=== PATIENT | female | born 1995 | race Caucasian/White ===

== ENCOUNTER 2017-01-14 22:38 | Emergency (ER) | payer BC, MEDICAID ==
[2017-01-14 22:50] VITALS: BP 129/81
--- NOTE | 2017-01-14 23:07 | EDM.PDOC ---
ED HPI GENERAL MEDICAL PROBLEM - General Chief Complaint: General Stated Complaint: FEELS LIKE MIGHT PASS OUT Time Seen by Provider: 01/14/17 23:00 Source of Information: Reports: Patient History Limitations: Reports: No limitations - History of Present Illness INITIAL COMMENTS - FREE TEXT/NARRATIVE: c/o feeling light headed after waking up. Works at night, Sore throat past couple of days. Dizziness worse with movement and changing position - Related Data Allergies Allergy/AdvReac Type Severity Reaction Status Date / Time No Known Allergies Allergy Verified 01/14/17 22:51 Home Meds: Home Meds Ethinyl Estradiol/Drospirenone [Drospirenone-Ee 3-0.03 mg Tab] 1 tab PO DAILY [History] Levothyroxine Sodium [Levothyroxine Sodium] 100 mcg PO DAILY 10/06/16 [History] Past Medical History Psychiatric History: Reports: Anxiety, Depression Endocrine/Metabolic History: Reports: Hypothyroidism - Infectious Disease History Infectious Disease History: Reports: None - Past Surgical History HEENT Surgical History: Reports: Tonsillectomy Social & Family History - Family History Family Medical History: Noncontributory - Tobacco Use Smoking Status *Q: Current Every Day Smoker Years of Tobacco use: 4 Packs/Tins Daily: 1 Second Hand Smoke Exposure: Yes - Caffeine Use Caffeine Use: Reports: Coffee, Soda - Recreational Drug Use Recreational Drug Use: No ED ROS GENERAL - Review of Systems Review Of Systems: See Below Constitutional: Reports: fatigue HEENT: Reports: Throat pain Respiratory: Reports: Shortness of Breath Cardiovascular: Reports: Lightheadedness GI/Abdominal: Reports: No symptoms : Reports: no symptoms Musculoskeletal: Reports: no symptoms Skin: Reports: no symptoms Psychiatric: Reports: No symptoms ED EXAM, GENERAL - Physical Exam Exam: See Below Exam Limited By: No limitations General Appearance: alert, mild distress, obese Eye Exam: bilateral eye: EOMI, PERRL Ears: other (TM's dull bilateral) Nose: normal inspection Throat/Mouth: Inflammation (mild posterior, no exudate) Head: atraumatic, normocephalic Neck: normal inspection. No: lymphadenopathy (L), lymphadenopathy (R) Respiratory/Chest: no respiratory distress, lungs clear, normal breath sounds Cardiovascular: normal peripheral pulses, regular rate, rhythm GI/Abdominal: normal bowel sounds Back Exam: normal inspection Neurological: alert, oriented, CN II-XII intact, normal cognition, normal gait, no motor/sensory deficits Psychiatric: normal affect Skin Exam: Warm, Dry, Intact, Normal color Course - Vital Signs Last Recorded V/S: Last Vital Signs Temp 96 F 01/14/17 22:49 Pulse 99 01/14/17 22:49 Resp 20 01/14/17 22:49 BP 129/81 01/14/17 22:49 Pulse Ox 99 01/14/17 22:49 Orthostatic Blood Pressure [ 132/81 Standing] Orthostatic Blood Pressure [ 126/79 Sitting] Orthostatic Blood Pressure [ 132/77 Supine] - Orders/Labs/Meds Labs: Laboratory Tests 01/14/17 01/14/17 01/14/17 Range/Units 23:04 23:04 23:04 WBC (5.0-10.0) 10^3/uL RBC (4.2-5.4) 10^6/uL Hgb (12.0-16.0) g/dL Hct (37.0-47.0) % MCV (80-100) fL MCH (27.0-34.0) pg MCHC (33.0-35.0) g/dL Plt Count (150-450) 10^3/uL Neut % (Auto) (42.2-75.2) % Lymph % (Auto) (20.5-50.1) % Cecil % (Auto) (2-8) % Eos % (Auto) (1.0-3.0) % Baso % (Auto) (0.0-1.0) % Sodium (135-145) mmol/L Potassium (3.6-5.0) mmol/L Chloride (101-111) mmol/L Carbon Dioxide (21.0-31.0) mmol/L Anion Gap BUN (7-18) mg/dL Creatinine (0.6-1.3) mg/dL Est Cr Clr Drug Dosing mL/min Estimated GFR (MDRD) BUN/Creatinine Ratio Glucose (74-105) mg/dL Calcium (8.4-10.2) mg/dl Total Bilirubin (0.2-1.0) mg/dL AST (10-42) IU/L ALT (10-60) IU/L Alkaline Phosphatase (42-121) IU/L Total Protein (6.7-8.2) g/dl Albumin (3.2-5.5) g/dl Globulin Albumin/Globulin Ratio Urine Color Yellow (YELLOW) Urine Appearance Slightly cloudy (CLEAR) Urine pH 5.5 (5.0-9.0) Ur Specific [place] 1.020 (1.005-1.030) Urine Protein Negative (NEGATIVE) Urine Glucose (UA) Negative (NEGATIVE) Urine Ketones Negative (NEGATIVE) Urine Occult Blood Negative (NEGATIVE) Urine Nitrite Negative (NEGATIVE) Urine Bilirubin Negative (NEGATIVE) Urine Urobilinogen 0.2 (0.2-1.0) mg/dL Ur Leukocyte Esterase Small H (NEGATIVE) Urine RBC 0-5 /HPF Urine WBC 5-10 H (0-5/HPF) /HPF Ur Epithelial Cells Few /HPF Amorphous Sediment Rare (0/HPF) /HPF Urine Bacteria Few (0-FEW/HPF) /HPF Urine HCG, Qual Negative Urine Opiates Screen Negative (NEGATIVE) Ur Oxycodone Screen Negative (NEGATIVE) Urine Methadone Screen Negative (NEGATIVE) Ur Barbiturates Screen Negative (NEGATIVE) U Tricyclic Antidepress Negative (NEGATIVE) Ur Phencyclidine Scrn Negative (NEGATIVE) Ur Amphetamine Screen Negative (NEGATIVE) U Methamphetamines Scrn Negative (NEGATIVE) Urine MDMA Screen Negative (NEGATIVE) U Benzodiazepines Scrn Negative (NEGATIVE) Urine Cocaine Screen Negative (NEGATIVE) U Marijuana (THC) Screen Negative (NEGATIVE) Ethyl Alcohol mg/dL 01/14/17 01/14/17 Range/Units 23:15 23:15 WBC 15.2 H (5.0-10.0) 10^3/uL RBC 4.76 (4.2-5.4) 10^6/uL Hgb 14.0 (12.0-16.0) g/dL Hct 42.0 (37.0-47.0) % MCV 88.2 (80-100) fL MCH 29.4 (27.0-34.0) pg MCHC 33.3 (33.0-35.0) g/dL Plt Count 293 (150-450) 10^3/uL Neut % (Auto) 73.3 (42.2-75.2) % Lymph % (Auto) 17.0 L (20.5-50.1) % Cecil % (Auto) 7.9 (2-8) % Eos % (Auto) 1.6 (1.0-3.0) % Baso % (Auto) 0.2 (0.0-1.0) % Sodium 137 (135-145) mmol/L Potassium 3.9 (3.6-5.0) mmol/L Chloride 102 (101-111) mmol/L Carbon Dioxide 25.0 (21.0-31.0) mmol/L Anion Gap 13.9 BUN 9 (7-18) mg/dL Creatinine 0.6 (0.6-1.3) mg/dL Est Cr Clr Drug Dosing 143.02 mL/min Estimated GFR (MDRD) > 60 BUN/Creatinine Ratio 15.00 Glucose 96 (74-105) mg/dL Calcium 8.9 (8.4-10.2) mg/dl Total Bilirubin 0.5 (0.2-1.0) mg/dL AST 20 (10-42) IU/L ALT 21 (10-60) IU/L Alkaline Phosphatase 66 (42-121) IU/L Total Protein 6.8 (6.7-8.2) g/dl Albumin 3.6 (3.2-5.5) g/dl Globulin 3.2 Albumin/Globulin Ratio 1.13 Urine Color (YELLOW) Urine Appearance (CLEAR) Urine pH (5.0-9.0) Ur Specific [place] (1.005-1.030) Urine Protein (NEGATIVE) Urine Glucose (UA) (NEGATIVE) Urine Ketones (NEGATIVE) Urine Occult Blood (NEGATIVE) Urine Nitrite (NEGATIVE) Urine Bilirubin (NEGATIVE) Urine Urobilinogen (0.2-1.0) mg/dL Ur Leukocyte Esterase (NEGATIVE) Urine RBC /HPF Urine WBC (0-5/HPF) /HPF Ur Epithelial Cells /HPF Amorphous Sediment (0/HPF) /HPF Urine Bacteria (0-FEW/HPF) /HPF Urine HCG, Qual Urine Opiates Screen (NEGATIVE) Ur Oxycodone Screen (NEGATIVE) Urine Methadone Screen (NEGATIVE) Ur Barbiturates Screen (NEGATIVE) U Tricyclic Antidepress (NEGATIVE) Ur Phencyclidine Scrn (NEGATIVE) Ur Amphetamine Screen (NEGATIVE) U Methamphetamines Scrn (NEGATIVE) Urine MDMA Screen (NEGATIVE) U Benzodiazepines Scrn (NEGATIVE) Urine Cocaine Screen (NEGATIVE) U Marijuana (THC) Screen (NEGATIVE) Ethyl Alcohol < 5 mg/dL - Re-Assessments/Exams Free Text/Narrative Re-Assessment/Exam: 03/21/17 04:50 orthostatic BP unremarkable Departure - Departure Time of Disposition: 00:26 Disposition: Home, Self-Care 01 Condition: good Clinical Impression: Strep pharyngitis, Dizziness Instructions: Tonsillitis, [id number] Referrals: PCP,Not In Area [Primary Care Provider] - Forms: ED Department Discharge Additional Instructions: tylenolor ibuprofen for pain fever increase fluid intake augmentin 875/125 one tablet twice daily for one week clinic follow up 3-4 days if not improving
[2017-01-14 23:44] LABS: CHLORIDE,CL 102 mmol/L (101-111); SODIUM,NA 137 mmol/L (135-145)
== END 2017-01-15 00:43 | disposition home or self-care (01) ==
LOC: DL.ED 22:38
DX: J02.0 Streptococcal pharyngitis (principal); F41.9 Anxiety disorder, unspecified; F32.9 Major depressive disorder, single episode, unspecified; E03.9 Hypothyroidism, unspecified; F17.210 Nicotine dependence, cigarettes, uncomplicated; Z79.899 Other long term (current) drug therapy; Z98.890 Other specified postprocedural states
CPT/HCPCS: 36415; 80053; 80305; 81001; 81025; 85025; 87430; 99284; G0480

== ENCOUNTER 2017-04-28 03:41 | Emergency (ER) | payer BC, MEDICAID ==
[2017-04-28 03:47] VITALS: BP 110/69
[2017-04-28] MEDS ORDERED: diphenhydrAMINE 50 MG Cap PO ONE (03:50)
--- NOTE | 2017-04-28 03:53 | EDM.PDOC ---
ED HPI GENERAL MEDICAL PROBLEM - General Chief Complaint: Allergic Reaction Stated Complaint: ALLERGIC REACTION, [id number] Time Seen by Provider: 04/28/17 03:45 Source of Information: Reports: Patient History Limitations: Reports: No Limitations - History of Present Illness INITIAL COMMENTS - FREE TEXT/NARRATIVE: This 21 yo female patient reports to the ED with a possible allergic reaction. The patient reports she started to have itching on her arms, legs and feet at about 2230 last night and has continued to have increasing symptoms throughout the night. The patient reports she took some "all day everyday" allergy medications last night at 2130. The patient reports she has not taken anything else since the symptoms started. The patient reports she is allergic to all of the fragrance products. The patient reports she started noticing the symptoms while at work. Onset: Sudden Onset Date: 04/27/17 Onset Time: 22:30 Duration: Constant, Getting Worse Location: Reports: Face, Neck, Upper Extremity, Left, Upper Extremity, Right, Lower Extremity, Left, Lower Extremity, Right Quality: Reports: Dull Severity: Moderate Improves with: Reports: None Worsens with: Reports: None Associated Symptoms: Reports: No Other Symptoms - Related Data Allergies Allergy/AdvReac Type Severity Reaction Status Date / Time No Known Allergies Allergy Verified 04/28/17 03:44 Home Meds: Home Meds Ethinyl Estradiol/Drospirenone [Drospirenone-Ee 3-0.03 mg Tab] 1 tab PO DAILY [History] Levothyroxine Sodium [Levothyroxine Sodium] 100 mcg PO DAILY 10/06/16 [History] Past Medical History Psychiatric History: Reports: Anxiety, Depression Endocrine/Metabolic History: Reports: Hypothyroidism - Infectious Disease History Infectious Disease History: Reports: None - Past Surgical History HEENT Surgical History: Reports: Tonsillectomy Social & Family History - Family History Family Medical History: Noncontributory - Tobacco Use Smoking Status *Q: Current Every Day Smoker Years of Tobacco use: 4 Packs/Tins Daily: 1 Second Hand Smoke Exposure: Yes - Caffeine Use Caffeine Use: Reports: Coffee, Soda - Recreational Drug Use Recreational Drug Use: No ED ROS ALLERGIC REACTION - Review of Systems Review Of Systems: ROS reveals no pertinent complaints other than HPI. ED EXAM GENERAL NO PERIP PULSE - Physical Exam Exam: See Below Exam Limited By: No Limitations General Appearance: Alert, WD/WN, Moderate Distress, Obese Eye Exam: Bilateral Eye: EOMI, Normal Inspection, PERRL Ears: Normal External Exam, Normal Canal, Hearing Grossly Normal, Normal TMs Nose: Normal Inspection, Normal Mucosa, No Blood Throat/Mouth: Normal Inspection, Normal Lips, Normal Teeth, Normal Gums, Normal Oropharynx, Normal Voice, No Airway Compromise Head: Atraumatic, Normocephalic Neck: Normal Inspection, Supple, Non-Tender, Full Range of Motion Respiratory/Chest: No Respiratory Distress Cardiovascular: Normal Peripheral Pulses, Regular Rate, Rhythm, No Edema, No Gallop, No JVD, No Murmur, No Rub GI/Abdominal: Normal Bowel Sounds, Soft, Non-Tender, No Organomegaly, No Distention, No Abnormal Bruit, No Mass (Female) Exam: Deferred Rectal (Female) Exam: Deferred Back Exam: Normal Inspection, Full Range of Motion, NT Extremities: Normal Inspection, Normal Range of Motion, Non-Tender, Normal Capillary Refill, No Pedal Edema Neurological: Alert, Oriented, CN II-XII Intact, Normal Cognition, Normal Gait, Normal Reflexes, No Motor/Sensory Deficits Psychiatric: Normal Affect, Normal Mood Skin Exam: Excoriations Lymphatic: No Adenopathy Course - Vital Signs Last Recorded V/S: Last Vital Signs Temp 35.9 C 04/28/17 03:44 Pulse 109 H 04/28/17 03:44 Resp 18 04/28/17 03:44 BP 110/69 04/28/17 03:44 Pulse Ox 99 04/28/17 03:44 - Orders/Labs/Meds Meds: Medications Discontinued Medications Generic Name Dose Route Start Last Admin Trade Name Kat PRN Reason Stop Dose Admin Diphenhydramine HCl 50 mg 04/28/17 03:50 04/28/17 03:53 Benadryl PO 04/28/17 03:51 50 mg ONETIME ONE Administration Methylprednisolone Sodium Succinate 125 mg 04/28/17 04:15 04/28/17 04:20 Solu-Medrol IM 04/28/17 04:16 125 mg ONETIME ONE Administration - Re-Assessments/Exams Free Text/Narrative Re-Assessment/Exam: 04/28/17 04:17 The patient reports no change in her symptoms after being given Benadryl. 04/28/17 04:40 The patient reports she is feeling a little better after the steroid injection. Departure - Departure Time of Disposition: 04:40 Disposition: Home, Self-Care 01 Condition: Fair Clinical Impression: Allergic reaction Qualifiers: Encounter type: initial encounter Qualified Code(s): T78.40XA - Allergy, unspecified, initial encounter - Discharge Information Instructions: Allergies, [id number] Forms: ED Department Discharge Care Plan Goals: The patient was advised of the examination results during the visit. The patient was given an oral dose of Benadryl (50 mg) and an injection of SoluMedrol (125 mg) while in the ED. The patient was given a script for Prednisone (20 mg) #10 to take 2 by mouth daily for the next 5 days. The patient was encouraged to take Benadryl (25 mg) every 6 hours over the next 5 days. If the patient has any additional symptoms or concerns, the patient should follow-up with her primary care facility or return to the emergency department.
[2017-04-28] MEDS ORDERED: methylPREDNISolone Sodium Succinate 125 MG/2 ML SDV IM ONE (04:15)
== END 2017-04-28 04:49 | disposition home or self-care (01) ==
LOC: DL.ED 03:41
DX: T78.40XA Allergy, unspecified, initial encounter (principal); F41.9 Anxiety disorder, unspecified; F32.9 Major depressive disorder, single episode, unspecified; E03.9 Hypothyroidism, unspecified; F17.210 Nicotine dependence, cigarettes, uncomplicated; Z79.899 Other long term (current) drug therapy; Z98.890 Other specified postprocedural states
CPT/HCPCS: 96372; 99283; J2930; Q0163

== ENCOUNTER 2017-07-14 01:29 | Emergency (ER) | payer BC ==
[2017-07-14 01:36] VITALS: BP 131/49
--- NOTE | 2017-07-14 02:17 | EDM.PDOC ---
ED HPI GENERAL MEDICAL PROBLEM - General Chief Complaint: Flank Pain Stated Complaint: KIDNEY INFECTION Time Seen by Provider: 07/14/17 02:15 Source of Information: Reports: Patient History Limitations: Reports: No Limitations - History of Present Illness INITIAL COMMENTS - FREE TEXT/NARRATIVE: onset recurrent UTI Sx since yesterday with left flank discomfort. denies fever. 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 Musculoskeletal History: Reports: None Neurological History: Reports: None Psychiatric History: Reports: Anxiety, Depression Endocrine/Metabolic History: Reports: Hypothyroidism Hematologic History: Reports: None Immunologic History: Reports: None Oncologic (Cancer) History: Reports: None Dermatologic History: Reports: None - Infectious Disease History Infectious Disease History: Reports: None - Past Surgical History HEENT Surgical History: Reports: Tonsillectomy GI Surgical History: Reports: Cholecystectomy Social & Family History - Family History Family Medical History: Noncontributory - Tobacco Use Smoking Status *Q: Current Every Day Smoker Years of Tobacco use: 4 Packs/Tins Daily: 1 Second Hand Smoke Exposure: Yes - Caffeine Use Caffeine Use: Reports: Coffee, Soda - Recreational Drug Use Recreational Drug Use: No ED ROS GENERAL - Review of Systems Review Of Systems: ROS reveals no pertinent complaints other than HPI. ED EXAM, RENAL/ - Physical Exam Exam: See Below Exam Limited By: No Limitations General Appearance: Alert, WD/WN, No Apparent Distress Ears: Hearing Grossly Normal Throat/Mouth: Normal Voice, No Airway Compromise Head: Atraumatic Neck: Non-Tender, Full Range of Motion Respiratory/Chest: No Respiratory Distress Cardiovascular: Regular Rate, Rhythm GI/Abdominal: Soft, Non-Tender Back Exam: CVA Tenderness (L), Other (minimal) Neurological: Alert, Oriented, Normal Cognition, Normal Gait, No Motor/Sensory Deficits Psychiatric: Normal Affect, Normal Mood Skin Exam: Warm, Dry, Normal Color Lymphatic: No Adenopathy Course - Vital Signs Last Recorded V/S: Last Vital Signs Temp 36.1 C 07/14/17 01:32 Pulse 91 07/14/17 01:32 Resp 18 07/14/17 01:32 BP 131/49 L 07/14/17 01:32 Pulse Ox 100 07/14/17 01:32 - Orders/Labs/Meds Orders: Active Orders 24 hr Category Date Time Status UA W/MICROSCOPIC [URIN] Stat Lab 07/14/17 01:45 Results Labs: Laboratory Tests 07/14/17 07/14/17 Range/Units 01:45 01:45 Urine Color Yellow (YELLOW) Urine Appearance Cloudy (CLEAR) Urine pH 6.0 (5.0-9.0) Ur Specific [place] >= 1.030 (1.005-1.030) Urine Protein 30 H (NEGATIVE) Urine Glucose (UA) Negative (NEGATIVE) Urine Ketones Negative (NEGATIVE) Urine Occult Blood Large H (NEGATIVE) Urine Nitrite Positive H (NEGATIVE) Urine Bilirubin Negative (NEGATIVE) Urine Urobilinogen 0.2 (0.2-1.0) mg/dL Ur Leukocyte Esterase Small H (NEGATIVE) Urine HCG, Qual Negative Meds: Medications Discontinued Medications Generic Name Dose Route Start Last Admin Trade Name Freq PRN Reason Stop Dose Admin Phenazopyridine HCl 95 mg 07/14/17 02:20 Urinary Pain Relief PO 07/14/17 02:21 ONETIME ONE Trimethoprim/Sulfamethoxazole 1 tab 07/14/17 02:20 Septra Ds PO 07/14/17 02:21 ONETIME ONE - Re-Assessments/Exams Free Text/Narrative Re-Assessment/Exam: 07/14/17 02:24 results discussed with pt. Departure - Departure Time of Disposition: 02:24 Disposition: Home, Self-Care 01 Condition: Good Clinical Impression: UTI, Urinary tract infectious disease - Discharge Information Instructions: Urinary Tract Infection, Adult Forms: ED Department Discharge Additional Instructions: 1) drink lots of liquids 2) follow up with clinic or recheck as needed rx given; bactrim DS bid x 20 pyridium 100mg tid prn x 12 - My Orders Last 24 Hours: My Active Orders 07/14/17 01:45 UA W/MICROSCOPIC [URIN] Stat - Assessment/Plan Last 24 Hours: My Active Orders 07/14/17 01:45 UA W/MICROSCOPIC [URIN] Stat
[2017-07-14] MEDS ORDERED: Sulfamethoxazole/Trimethoprim 800-160 MG Tab PO ONE (02:20)
[2017-07-14] MEDS ORDERED: Phenazopyridine 95 MG Tab PO ONE (02:20)
== END 2017-07-14 02:41 | disposition home or self-care (01) ==
LOC: DL.ED 01:29
DX: N39.0 Urinary tract infection, site not specified (principal); F32.9 Major depressive disorder, single episode, unspecified; E03.9 Hypothyroidism, unspecified; F17.210 Nicotine dependence, cigarettes, uncomplicated; Z90.49 Acquired absence of other specified parts of digestive tract; Z98.890 Other specified postprocedural states; Z79.899 Other long term (current) drug therapy
CPT/HCPCS: 81001; 81025; 99284; A9270

== ENCOUNTER 2019-08-03 21:39 | Emergency (ER) | payer BC ==
[2019-08-03 22:21] VITALS: BP 121/78; PULSE 104
--- NOTE | 2019-08-03 23:11 | EDM.PDOC ---
ED HPI GENERAL MEDICAL PROBLEM - General Chief Complaint: Respiratory Problem Stated Complaint: SOB Time Seen by Provider: 08/03/19 22:45 Source of Information: Reports: Patient History Limitations: Reports: No Limitations - History of Present Illness INITIAL COMMENTS - FREE TEXT/NARRATIVE: cold sx x one week with cough, fever, last tylenol this am. No vomiting or diarrhea, No ear or throat pain, Dry nonproductive cough, Hx asthma, Contacted her PCP this am and got inhaler. 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, Musculoskeletal History: Reports: None Neurological History: Reports: None Psychiatric History: Reports: Anxiety, Depression Endocrine/Metabolic History: Reports: Hypothyroidism Hematologic History: Reports: None Immunologic History: Reports: None Oncologic (Cancer) History: Reports: None Dermatologic History: Reports: None - Infectious Disease History Infectious Disease History: Reports: None - Past Surgical History HEENT Surgical History: Reports: Adenoidectomy, Tonsillectomy GI Surgical History: Reports: Cholecystectomy Social & Family History - Family History Family Medical History: Noncontributory - Tobacco Use Smoking Status *Q: Current Every Day Smoker Years of Tobacco use: 7 Packs/Tins Daily: 1.5 - Caffeine Use Caffeine Use: Reports: Energy Drinks, Soda - Recreational Drug Use Recreational Drug Use: Yes Recreational Drug Type: Reports: Marijuana/Hashish, Methamphetamine ED ROS GENERAL - Review of Systems Review Of Systems: ROS reveals no pertinent complaints other than HPI. ED EXAM, GENERAL - Physical Exam Exam: See Below Exam Limited By: No Limitations General Appearance: Alert, No Apparent Distress, Obese Eye Exam: Bilateral Eye: EOMI Ears: Normal External Exam, Normal TMs Nose: Normal Inspection Throat/Mouth: Normal Inspection Head: Atraumatic, Normocephalic Neck: Full Range of Motion Respiratory/Chest: No Respiratory Distress, Lungs Clear, Normal Breath Sounds. No: Decreased Breath Sounds, Crackles, Rales, Rhonchi, Wheezing Cardiovascular: Normal Peripheral Pulses, Regular Rate, Rhythm GI/Abdominal: Normal Bowel Sounds, Soft Extremities: Normal Inspection Neurological: Alert, Oriented, Normal Cognition Psychiatric: Normal Affect Skin Exam: Warm, Dry, Intact Course - Vital Signs Last Recorded V/S: Last Vital Signs Temp 98.6 F 08/03/19 22:14 Pulse 104 H 08/03/19 22:14 Resp 16 08/03/19 22:14 BP 121/78 08/03/19 22:14 Pulse Ox 100 08/03/19 22:14 - Orders/Labs/Meds Orders: Active Orders 24 hr Category Date Time Status CULTURE STREP A CONFIRMATION [RM] Stat Lab 08/03/19 22:25 Results STREP SCRN A RAPID W CULT CONF [RM] Stat Lab 08/03/19 22:25 Results Departure - Departure Time of Disposition: 23:09 Disposition: Home, Self-Care 01 Condition: Good Clinical Impression: URI (upper respiratory infection) Qualifiers: URI type: unspecified URI Qualified Code(s): J06.9 - Acute upper respiratory infection, unspecified Asthma Qualifiers: Asthma severity: mild Asthma persistence: intermittent Asthma complication type : with acute exacerbation Qualified Code(s): J45.21 - Mild intermittent asthma with (acute) exacerbation - Discharge Information *PRESCRIPTION DRUG MONITORING PROGRAM REVIEWED*: No *COPY OF PRESCRIPTION DRUG MONITORING REPORT IN PATIENT GEETHA: No Instructions: Upper Respiratory Infection, Adult Referrals: Ledy Douglas MD [Primary Care Provider] - Forms: ED Department Discharge Additional Instructions: Albuterol inhaler 2 puffs every 4 hours as needed for cough humidifier avoid tobacco smoke muccinex or robitussin per label instructions alternate tylenol and ibuprofen every 4 hours as needed for fever/ discomfort follow up if symptoms worsen - My Orders Last 24 Hours: My Active Orders 08/03/19 22:25 CULTURE STREP A CONFIRMATION [RM] Stat STREP SCRN A RAPID W CULT CONF [RM] Stat - Assessment/Plan Last 24 Hours: My Active Orders 08/03/19 22:25 CULTURE STREP A CONFIRMATION [RM] Stat STREP SCRN A RAPID W CULT CONF [RM] Stat
== END 2019-08-03 23:14 | disposition home or self-care (01) ==
LOC: DL.ED 21:39
DX: J06.9 Acute upper respiratory infection, unspecified (principal); J45.21 Mild intermittent asthma with (acute) exacerbation; E03.9 Hypothyroidism, unspecified; F17.210 Nicotine dependence, cigarettes, uncomplicated; Z79.890 Hormone replacement therapy
CPT/HCPCS: 87081; 87430; 99283

== ENCOUNTER 2020-01-03 14:15 | Emergency (ER) | payer BC ==
[2020-01-03 14:25] VITALS: BP 155/102; PULSE 85
--- NOTE | 2020-01-03 14:58 | EDM.PDOC ---
ED HPI GENERAL MEDICAL PROBLEM - General Chief Complaint: Lower Extremity Injury/Pain Stated Complaint: LEFT LEG INJURY Time Seen by Provider: 01/03/20 14:56 Source of Information: Reports: Patient History Limitations: Reports: No Limitations - History of Present Illness INITIAL COMMENTS - FREE TEXT/NARRATIVE: was chasing her son yesterday and fell with left leg tucked under her and her knee and ankle hurt. hard to stand. Left Lower Leg Pain Score (Numeric/FACES): 8 - Related Data Allergies Allergy/AdvReac Type Severity Reaction Status Date / Time No Known Allergies Allergy Verified 08/03/19 22:14 Home Meds: Home Meds Ethinyl Estradiol/Drospirenone [Drospirenone-Ee 3-0.03 mg Tab] 1 tab PO DAILY [History] Acetaminophen [Tylenol] 650 mg PO Q4H PRN 01/03/20 [History] Ibuprofen 800 mg PO Q8H 01/03/20 [History] lamoTRIgine [Lamotrigine] 25 mg PO DAILY 01/03/20 [History] Past Medical History HEENT History: Reports: None Cardiovascular History: Reports: None Respiratory History: Reports: None Gastrointestinal History: Reports: None Genitourinary History: Reports: None 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, Musculoskeletal History: Reports: None Neurological History: Reports: None Psychiatric History: Reports: Anxiety, Depression Endocrine/Metabolic History: Reports: Hypothyroidism Hematologic History: Reports: None Immunologic History: Reports: None Oncologic (Cancer) History: Reports: None Dermatologic History: Reports: None - Infectious Disease History Infectious Disease History: Reports: None - Past Surgical History Head Surgeries/Procedures: Reports: None HEENT Surgical History: Reports: Adenoidectomy, Tonsillectomy GI Surgical History: Reports: Cholecystectomy Social & Family History - Family History Family Medical History: Noncontributory - Tobacco Use Smoking Status *Q: Current Every Day Smoker Years of Tobacco use: 1 Packs/Tins Daily: 7 Used Tobacco, but Quit: No - Caffeine Use Caffeine Use: Reports: Soda - Recreational Drug Use Recreational Drug Use: No Review of Systems - Review of Systems Review Of Systems: Comprehensive ROS is negative, except as noted in HPI. ED EXAM, GENERAL - Physical Exam Exam: See Below Exam Limited By: No Limitations General Appearance: Alert, WD/WN, Mild Distress, Other (discomfort) Ears: Hearing Grossly Normal Throat/Mouth: Normal Voice, No Airway Compromise Head: Atraumatic Neck: Non-Tender, Full Range of Motion Respiratory/Chest: No Respiratory Distress Cardiovascular: Regular Rate, Rhythm GI/Abdominal: Soft, Non-Tender Extremities: Other (left knee & ankle with mild swelling, tender R/P, NV wnl, gait limited to pain) Neurological: Alert, Oriented, Normal Cognition, No Motor/Sensory Deficits Psychiatric: Flat Affect Skin Exam: Warm, Dry, Normal Color Lymphatic: No Adenopathy Course - Vital Signs Last Recorded V/S: Last Vital Signs Temp 35.7 C L 01/03/20 14:24 Pulse 85 01/03/20 14:24 Resp 20 01/03/20 14:24 BP 155/102 H 01/03/20 14:24 Pulse Ox 99 01/03/20 14:24 - Orders/Labs/Meds Orders: Active Orders 24 hr Category Date Time Status Ankle 2V Lt [CR] Urgent Exams 01/03/20 14:53 Taken Knee 1V or 2V Lt [CR] Urgent Exams 01/03/20 14:53 Taken - Re-Assessments/Exams Free Text/Narrative Re-Assessment/Exam: 01/03/20 15:34 results discussed with pt. Departure - Departure Time of Disposition: 15:34 Disposition: Home, Self-Care 01 Condition: Good Clinical Impression: Contusion of knee, Sprain of knee Ankle sprain Qualifiers: Encounter type: initial encounter Involved ligament of ankle: calcaneofibular ligament Laterality: left Qualified Code(s): S93.412A - Sprain of calcaneofibular ligament of left ankle, initial encounter - Discharge Information Instructions: Knee Sprain, Adult, [id number] Forms: ED Department Discharge Additional Instructions: 1) wear knee immobilizer and use crutches 2) elevate left leg as much as possible next 4 days 3) see clinic tomorrow for possible MRI SCAN OF LEFT KNEE AND ANKLE FOR INTERNAL LIGAMENT TEARS 4) take tylenol or motrin for discomfort Sepsis Event Note - Evaluation Sepsis Screening Result: No Definite Risk - Focused Exam Vital Signs: Vital Signs Temp Pulse Resp BP Pulse Ox 01/03/20 14:24 35.7 C L 85 20 155/102 H 99 Date Exam was Performed: 01/03/20 Time Exam was Performed: 15:34 - My Orders Last 24 Hours: My Active Orders 01/03/20 14:53 Ankle 2V Lt [CR] Urgent Knee 1V or 2V Lt [CR] Urgent - Assessment/Plan Last 24 Hours: My Active Orders 01/03/20 14:53 Ankle 2V Lt [CR] Urgent Knee 1V or 2V Lt [CR] Urgent
== END 2020-01-03 16:01 | disposition home or self-care (01) ==
LOC: DL.ED 14:15
DX: S93.412A Sprain of calcaneofibular ligament of left ankle, initial encounter (principal); S83.92XA Sprain of unspecified site of left knee, initial encounter; F17.210 Nicotine dependence, cigarettes, uncomplicated; Z79.899 Other long term (current) drug therapy; W19.XXXA Unspecified fall, initial encounter; Y93.02 Activity, running; Y92.000 Kitchen of unspecified non-institutional (private) residence as the place of occurrence of the external cause
CPT/HCPCS: 73560-LT; 73600-LT; 99283-25

== ENCOUNTER 2021-02-17 16:32 | Emergency (ER) | payer BC, MEDICAID, OTHER ==
[2021-02-17 16:58] VITALS: BP 136/110; PULSE 88
--- NOTE | 2021-02-17 18:10 | EDM.PDOC ---
ED HPI GENERAL MEDICAL PROBLEM - General Chief Complaint: Back Pain or Injury Stated Complaint: fell off a ladder Time Seen by Provider: 02/17/21 17:14 Source of Information: Reports: Patient, RN, RN Notes Reviewed History Limitations: Reports: No Limitations - History of Present Illness INITIAL COMMENTS - FREE TEXT/NARRATIVE: Patient is a 25-year-old female who presents to ER with complaint of left-sided rib/flank pain, left hip pain, left leg pain down to the left knee. Reports pain in her spine. Describes the pain as a tightness in her left thigh. Patient states she fell off a ladder 2 days ago, fell down 3 steps and landed on her feet. Patient denies hitting her head or getting knocked out. Patient states pain is improved when she is lying down, becomes worse when she tries to stand up from sitting position or stand. Onset: Sudden Left Lower Back Pain Score (Numeric/FACES): 6 - Related Data Allergies Allergy/AdvReac Type Severity Reaction Status Date / Time ciprofloxacin Allergy Hives Verified 02/17/21 16:55 Home Meds: Home Meds Ethinyl Estradiol/Drospirenone [Drospirenone-Ee 3-0.03 mg Tab] 1 tab PO DAILY 10/06/16 [History] Acetaminophen [Tylenol] 650 mg PO Q4H PRN 01/03/20 [History] Ibuprofen 800 mg PO Q8H 01/03/20 [History] lamoTRIgine [Lamotrigine] 25 mg PO DAILY 01/03/20 [History] Past Medical History HEENT History: Reports: None Cardiovascular History: Reports: None Respiratory History: Reports: None Gastrointestinal History: Reports: None Genitourinary History: Reports: None 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 History: Reports: None Neurological History: Reports: None Psychiatric History: Reports: Anxiety, Depression Endocrine/Metabolic History: Reports: Hypothyroidism Hematologic History: Reports: None Immunologic History: Reports: None Oncologic (Cancer) History: Reports: None Dermatologic History: Reports: None - Infectious Disease History Infectious Disease History: Reports: Novel Coronavirus - Past Surgical History Head Surgeries/Procedures: Reports: None HEENT Surgical History: Reports: Adenoidectomy, Tonsillectomy GI Surgical History: Reports: Cholecystectomy Social & Family History - Family History Family Medical History: No Pertinent Family History - Tobacco Use Tobacco Use Status *Q: Current Every Day Tobacco User Years of Tobacco use: 10 Packs/Tins Daily: 1 - Caffeine Use Caffeine Use: Reports: Soda - Recreational Drug Use Recreational Drug Use: No ED ROS GENERAL - Review of Systems Review Of Systems: Comprehensive ROS is negative, except as noted in HPI. ED EXAM,LOWER BACK PAIN/INJURY - Physical Exam Exam: See Below Exam Limited By: No Limitations General Appearance: Alert, WD/WN, Mild Distress, Obese Eye Exam: Bilateral Eye: EOMI, Normal Inspection Ears: Normal External Exam, Hearing Grossly Normal Nose: Normal Inspection Throat/Mouth: Normal Inspection, Normal Voice, No Airway Compromise Head: Atraumatic, Normocephalic Neck: Normal Inspection, Supple, Non-Tender, Full Range of Motion Respiratory/Chest: No Respiratory Distress, Lungs Clear, Normal Breath Sounds, No Accessory Muscle Use, Chest Non-Tender Cardiovascular: Normal Peripheral Pulses, Regular Rate, Rhythm, No Edema, No Gallop, No JVD, No Murmur, No Rub GI/Abdominal: Normal Bowel Sounds, Soft, Non-Tender (Female) Exam: Deferred Rectal (Female) Exam: Deferred Back Exam: CVA Tenderness (L), Decreased Range of Motion, Paraspinal Tenderness, Vertebral Tenderness Extremities: Normal Inspection, No Pedal Edema, Normal Capillary Refill, Leg Pain (left) Neurological: Alert, Normal Mood/Affect, Normal Dorsiflexion, CN II-XII Intact, Normal Plantar Flexion, Normal Gait (painful), Normal Reflexes, No Motor/Sensory Deficits, Oriented x 3 Psychiatric: Normal Affect, Normal Mood Skin Exam: Warm, Dry, Intact, Normal Color, No Rash Lymphatic: No Adenopathy Course - Vital Signs Last Recorded V/S: Last Vital Signs Temp 97.4 F 02/17/21 16:55 Pulse 88 02/17/21 16:55 Resp 18 02/17/21 16:55 BP 136/110 H 02/17/21 16:55 Pulse Ox 96 02/17/21 16:55 - Orders/Labs/Meds Labs: Laboratory Tests 02/17/21 02/17/21 Range/Units 17:40 17:40 Urine Color Yellow (YELLOW) Urine Appearance Slightly cloudy (CLEAR) Urine pH 5.5 (5.0-9.0) Ur Specific [place] >= 1.030 (1.005-1.030) Urine Protein 100 H (NEGATIVE) Urine Glucose (UA) Negative (NEGATIVE) Urine Ketones Negative (NEGATIVE) Urine Occult Blood Negative (NEGATIVE) Urine Nitrite Negative (NEGATIVE) Urine Bilirubin Negative (NEGATIVE) Urine Urobilinogen 0.2 (0.2-1.0) mg/dL Ur Leukocyte Esterase Negative (NEGATIVE) Urine RBC 0-5 /HPF Urine WBC 5-10 H (0-5/HPF) /HPF Ur Epithelial Cells Many H (NOT SEEN) /HPF Amorphous Sediment Few (NOT SEEN) /HPF Urine Bacteria Moderate H (0-FEW/HPF) /HPF Urine HCG, Qual Negative - Radiology Interpretation Free Text/Narrative:: Ribs with chest xray: PROCEDURE INFORMATION: Exam: XR Left Ribs with PA Chest Exam date and time: 02/17/2021 6:06 PM Age: 25 years old Clinical indication: Other: Fell 2 days ago; Additional info: Fall, pain left ribs, spinal tenderness, left hip/ TECHNIQUE: Imaging protocol: XR Left ribs with PA chest. Views: 3 views COMPARISON: No relevant prior studies available. FINDINGS: Lungs: Unremarkable. No consolidation. Pleural spaces: Unremarkable. No pleural effusion. No pneumothorax. Heart/Mediastinum: Unremarkable. No cardiomegaly. Bones/joints: Unremarkable. IMPRESSION: No acute findings. Thank you for allowing us to participate in the care of your patient. Dictated and Authenticated by: Davey Chris MD 02/17/2021 6:49 PM Central Time ([place] & [place]) Left Hip xray: PROCEDURE INFORMATION: Exam: XR Left Hip Exam date and time: 02/17/2021 6:15 PM Age: 25 years old Clinical indication: Other: Fell 2 days ago; Additional info: Fall, pain left ribs, spinal tenderness, left hip/ TECHNIQUE: Imaging protocol: XR Left hip. Views: 2 or 3 views hip with pelvis when performed. COMPARISON: No relevant prior studies available. FINDINGS: Bones/joints: There is no evidence of acute fracture. There is no subluxation or dislocation. 12 mm sclerotic density left superior pubic ramus likely a bone island. Soft tissues: There is no soft tissue abnormality seen. Gastrointestinal tract: Non-specific/nonobstructive intestinal gas pattern. IMPRESSION: 1. No acute findings. 2. 12 mm sclerotic density left superior pubic ramus likely a bone island. Further evaluation of this probably benign finding should be based on clinical grounds. If there is a high clinical suspicion of malignancy in this patient a bone scan could be considered. Thank you for allowing us to participate in the care of your patient. Dictated and Authenticated by: Davey Chris MD 02/17/2021 6:50 PM Central Time ([place] & [place]) Lumbosacral Spine: PROCEDURE INFORMATION: Exam: XR Lumbosacral Spine Exam date and time: 02/17/2021 6:18 PM Age: 25 years old Clinical indication: Other: Fell 2 days ago; Additional info: Fall, pain left ribs, spinal tenderness, left hip/ TECHNIQUE: Imaging protocol: XR of the lumbosacral spine. Views: 4 or 5 views. COMPARISON: CR Hip Min 2V or 3V w Pelvis Lt 02/17/2021 6:15 PM FINDINGS: Bones/joints: Near anatomic alignment. Lumbar disc space heights near normal. Minor anterior osteophytes multiple levels.The facet joints are appropriately oriented. There is no significant degenerative change. There is no evidence of acute fracture. Spina bifida occulta S1.Impression: Soft tissues: There is no soft tissue abnormality seen. Intraperitoneal space: Status post cholecystectomy. Gastrointestinal tract: Non-specific/nonobstructive intestinal gas pattern. IMPRESSION: No acute findings. Thank you for allowing us to participate in the care of your patient. Dictated and Authenticated by: Davey Chris MD 02/17/2021 6:52 PM Central Time ( & [place]) Thoracic spine xray: PROCEDURE INFORMATION: Exam: XR Thoracic Spine Exam date and time: 02/17/2021 6:20 PM Age: 25 years old Clinical indication: Other: Fell 2 days ago; Additional info: Fall, pain left ribs, spinal tenderness, left hip/ TECHNIQUE: Imaging protocol: XR of the thoracic spine. Views: 2 views. COMPARISON: No relevant prior studies available. FINDINGS: Bones/joints: Near anatomic alignment. There are no significant degenerative changes present. Limited visualization.There is no evidence of acute fracture. The pedicles are intact. No visible bone destruction. Soft tissues: There is no soft tissue abnormality seen. Lungs: The visualized portions of the lung are normal. IMPRESSION: No acute findings. Thank you for allowing us to participate in the care of your patient. Dictated and Authenticated by: Davey Chris MD 02/17/2021 6:53 PM Central Time ([place] & [place]) See rad report Departure - Departure Time of Disposition: 19:03 Disposition: Home, Self-Care 01 Condition: Good Clinical Impression: Muscle strain - Discharge Information *PRESCRIPTION DRUG MONITORING PROGRAM REVIEWED*: No *COPY OF PRESCRIPTION DRUG MONITORING REPORT IN PATIENT GEETHA: No Instructions: Back Injury Prevention, [id number], Muscle Strain, [id number] Forms: ED Department Discharge Additional Instructions: May use Tylenol and/or ibuprofen as directed for pain Alternate heat and ice to the affected areas Follow-up with your primary care provider in the clinic if no improvement for possible MRI Follow-up with physical therapy if no improvement Sepsis Event Note (ED) - Evaluation Sepsis Screening Result: No Definite Risk - Focused Exam Vital Signs: Vital Signs Temp Pulse Resp BP Pulse Ox 02/17/21 16:55 97.4 F 88 18 136/110 H 96
--- NOTE | 2021-02-17 18:49 | CR ---
PROCEDURE INFORMATION: Exam: XR Left Ribs with PA Chest Exam date and time: 02/17/2021 6:06 PM Age: 25 years old Clinical indication: Other: Fell 2 days ago; Additional info: Fall, pain left ribs, spinal tenderness, left hip/ TECHNIQUE: Imaging protocol: XR Left ribs with PA chest. Views: 3 views COMPARISON: No relevant prior studies available. FINDINGS: Lungs: Unremarkable. No consolidation. Pleural spaces: Unremarkable. No pleural effusion. No pneumothorax. Heart/Mediastinum: Unremarkable. No cardiomegaly. Bones/joints: Unremarkable. IMPRESSION: No acute findings.
--- NOTE | 2021-02-17 18:50 | CR ---
PROCEDURE INFORMATION: Exam: XR Left Hip Exam date and time: 02/17/2021 6:15 PM Age: 25 years old Clinical indication: Other: Fell 2 days ago; Additional info: Fall, pain left ribs, spinal tenderness, left hip/ TECHNIQUE: Imaging protocol: XR Left hip. Views: 2 or 3 views hip with pelvis when performed. COMPARISON: No relevant prior studies available. FINDINGS: Bones/joints: There is no evidence of acute fracture. There is no subluxation or dislocation. 12 mm sclerotic density left superior pubic ramus likely a bone island. Soft tissues: There is no soft tissue abnormality seen. Gastrointestinal tract: Non-specific/nonobstructive intestinal gas pattern. IMPRESSION: 1. No acute findings. 2. 12 mm sclerotic density left superior pubic ramus likely a bone island. Further evaluation of this probably benign finding should be based on clinical grounds. If there is a high clinical suspicion of malignancy in this patient a bone scan could be considered.
--- NOTE | 2021-02-17 18:52 | CR ---
PROCEDURE INFORMATION: Exam: XR Lumbosacral Spine Exam date and time: 02/17/2021 6:18 PM Age: 25 years old Clinical indication: Other: Fell 2 days ago; Additional info: Fall, pain left ribs, spinal tenderness, left hip/ TECHNIQUE: Imaging protocol: XR of the lumbosacral spine. Views: 4 or 5 views. COMPARISON: CR Hip Min 2V or 3V w Pelvis Lt 02/17/2021 6:15 PM FINDINGS: Bones/joints: Near anatomic alignment. Lumbar disc space heights near normal. Minor anterior osteophytes multiple levels.The facet joints are appropriately oriented. There is no significant degenerative change. There is no evidence of acute fracture. Spina bifida occulta S1.Impression: Soft tissues: There is no soft tissue abnormality seen. Intraperitoneal space: Status post cholecystectomy. Gastrointestinal tract: Non-specific/nonobstructive intestinal gas pattern. IMPRESSION: No acute findings.
--- NOTE | 2021-02-17 18:53 | CR ---
PROCEDURE INFORMATION: Exam: XR Thoracic Spine Exam date and time: 02/17/2021 6:20 PM Age: 25 years old Clinical indication: Other: Fell 2 days ago; Additional info: Fall, pain left ribs, spinal tenderness, left hip/ TECHNIQUE: Imaging protocol: XR of the thoracic spine. Views: 2 views. COMPARISON: No relevant prior studies available. FINDINGS: Bones/joints: Near anatomic alignment. There are no significant degenerative changes present. Limited visualization.There is no evidence of acute fracture. The pedicles are intact. No visible bone destruction. Soft tissues: There is no soft tissue abnormality seen. Lungs: The visualized portions of the lung are normal. IMPRESSION: No acute findings.
== END 2021-02-17 19:13 | disposition home or self-care (01) ==
LOC: DL.ED 16:32
DX: S76.012A Strain of muscle, fascia and tendon of left hip, initial encounter (principal); S29.011A Strain of muscle and tendon of front wall of thorax, initial encounter; S86.912A Strain of unspecified muscle(s) and tendon(s) at lower leg level, left leg, initial encounter; Z72.0 Tobacco use; Z88.1 Allergy status to other antibiotic agents; Z79.899 Other long term (current) drug therapy; W11.XXXA Fall on and from ladder, initial encounter
CPT/HCPCS: 71101-LT; 72070; 72110; 81001; 81025; 99283; 99283-25

== ENCOUNTER 2021-03-13 23:08 | Emergency (ER) | payer MEDICAID, OTHER ==
[2021-03-13 23:37] VITALS: PULSE 89
[2021-03-14] MEDS ORDERED: methylPREDNISolone Sodium Succinate 125 MG/2 ML SDV IVPUSH ONE (00:06)
[2021-03-14] MEDS ORDERED: Famotidine 20 MG/2 ML SDV IVPUSH ONE (00:07)
--- NOTE | 2021-03-14 00:13 | EDM.PDOC ---
ED HPI GENERAL MEDICAL PROBLEM - General Chief Complaint: Skin Complaint Stated Complaint: HIVES EVERYWHERE Time Seen by Provider: 03/13/21 23:40 Source of Information: Reports: Patient, RN History Limitations: Reports: No Limitations - History of Present Illness INITIAL COMMENTS - FREE TEXT/NARRATIVE: Ed with c/o hives and itching on arms and legs startign after sitting in sun today. 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 No difficulty swallowing or breathing. - Related Data Allergies Allergy/AdvReac Type Severity Reaction Status Date / Time ciprofloxacin Allergy Hives Verified 03/13/21 23:22 Home Meds: Home Meds Ethinyl Estradiol/Drospirenone [Drospirenone-Ee 3-0.03 mg Tab] 1 tab PO DAILY 10/06/16 [History] Acetaminophen [Tylenol] 650 mg PO Q4H PRN 01/03/20 [History] Ibuprofen 800 mg PO Q8H 01/03/20 [History] lamoTRIgine [Lamotrigine] 25 mg PO DAILY 01/03/20 [History] Past Medical History HEENT History: Reports: None Cardiovascular History: Reports: None Respiratory History: Reports: None Gastrointestinal History: Reports: None Genitourinary History: Reports: 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 History: Reports: None Neurological History: Reports: None Psychiatric History: Reports: Anxiety, Depression Endocrine/Metabolic History: Reports: Hypothyroidism Hematologic History: Reports: None Immunologic History: Reports: None Oncologic (Cancer) History: Reports: None Dermatologic History: Reports: None - Infectious Disease History Infectious Disease History: Reports: Novel Coronavirus - Past Surgical History Head Surgeries/Procedures: Reports: None HEENT Surgical History: Reports: Adenoidectomy, Tonsillectomy GI Surgical History: Reports: Cholecystectomy Social & Family History - Family History Family Medical History: No Pertinent Family History - Tobacco Use Tobacco Use Status *Q: Current Every Day Tobacco User Years of Tobacco use: 12 Packs/Tins Daily: 0.5 - Caffeine Use Caffeine Use: Reports: Soda - Recreational Drug Use Recreational Drug Use: No ED ROS GENERAL - Review of Systems Review Of Systems: Comprehensive ROS is negative, except as noted in HPI. ED EXAM, SKIN/RASH Exam: See Below Exam Limited By: No Limitations General Appearance: Alert, Mild Distress, Obese Ears: Normal External Exam Nose: Normal Inspection Throat/Mouth: Normal Inspection Head: Atraumatic, Normocephalic Neck: Normal Inspection Respiratory/Chest: No Respiratory Distress, Lungs Clear, Normal Breath Sounds Cardiovascular: Regular Rate, Rhythm GI/Abdominal: Normal Bowel Sounds, Soft Neurological: Alert, Oriented Psychiatric: Normal Affect Skin: Warm, Dry Location, Skin: Upper Extremity, Right, Upper Extremity, Left, Lower Extremity, Right, Lower Extremity, Left Characteristics: Papular, Fine, Urticarial Course - Vital Signs Last Recorded V/S: Last Vital Signs Temp 98.4 F 03/13/21 23:34 Pulse 89 03/13/21 23:34 Resp 20 03/13/21 23:34 BP 124/74 03/14/21 01:02 Pulse Ox 99 03/13/21 23:34 - Orders/Labs/Meds Meds: Medications Discontinued Medications Generic Name Dose Route Start Last Admin Trade Name Freq PRN Reason Stop Dose Admin Famotidine 20 mg 03/14/21 00:07 03/14/21 00:27 Famotidine 20 Mg/2 Ml Sdv IVPUSH 03/14/21 00:08 20 mg ONETIME ONE Administration Methylprednisolone Sodium Succinate 125 mg 03/14/21 00:06 03/14/21 00:27 Methylprednisolone Sodium Succinate 125 Mg/2 Ml Sdv IVPUSH 03/14/21 00:07 125 mg ONETIME ONE Administration - Re-Assessments/Exams Free Text/Narrative Re-Assessment/Exam: 03/14/21 02:38 Improved prior to discharge. Departure - Departure Time of Disposition: 00:11 Disposition: Home, Self-Care 01 Condition: Good Clinical Impression: Dermatitis - Discharge Information *PRESCRIPTION DRUG MONITORING PROGRAM REVIEWED*: No *COPY OF PRESCRIPTION DRUG MONITORING REPORT IN PATIENT GEETHA: No Instructions: Rash, Adult Forms: ED Department Discharge Additional Instructions: avoid sun exposure follow up in clinicprednisone taper benadryl 25-50mg every 4 hours as needed for itching Sepsis Event Note (ED) - Evaluation Sepsis Screening Result: No Definite Risk - Focused Exam Vital Signs: Vital Signs Temp Pulse Resp BP Pulse Ox 03/14/21 01:02 124/74 03/13/21 23:34 98.4 F 89 20 99
[2021-03-14] MEDS ORDERED: methylPREDNISolone Sodium Succinate 125 MG/2 ML SDV ONE (00:23)
[2021-03-14] MEDS ORDERED: Famotidine 20 MG/2 ML SDV ONE (00:24)
[2021-03-14 01:03] VITALS: BP 124/74
== END 2021-03-14 01:08 | disposition home or self-care (01) ==
LOC: DL.ED 23:08
DX: L30.9 Dermatitis, unspecified (principal); Z88.1 Allergy status to other antibiotic agents; Z72.0 Tobacco use
CPT/HCPCS: 96374; 96375; 99282; 99282-25; J2930; J3490

== ENCOUNTER 2021-12-18 20:17 | Emergency (ER) | payer MEDICAID ==
[2021-12-18 20:49] VITALS: BP 160/101; PULSE 113
[2021-12-18 20:51] LABS: AMPHETAMINES,URINE NEGATIVE (NEGATIVE); BARBITURATES,URINE NEGATIVE (NEGATIVE); BENZODIAZEPINE,URINE NEGATIVE (NEGATIVE); MDMA (ECSTASY), URINE NEGATIVE (NEGATIVE); METHADONE,URINE NEGATIVE (NEGATIVE); METHAMPHETAMINES,URINE NEGATIVE (NEGATIVE); OPIATES,URINE NEGATIVE (NEGATIVE); OXYCODONE,URINE NEGATIVE (NEGATIVE); PHENCYCLIDINE,URINE NEGATIVE (NEGATIVE); TCA,URINE NEGATIVE (NEGATIVE)
[2021-12-18] MEDS ORDERED: Ondansetron 4 MG/2 ML SDV IVPUSH ONE (20:57)
[2021-12-18] MEDS ORDERED: Sodium Chloride 0.9% 1,000 ML IV ONE (20:57)
[2021-12-18] MEDS ORDERED: fentaNYL 100 MCG/2 ML SDV IVPUSH ONE (20:57)
[2021-12-18 21:13] LABS: ANION GAP 14.9 mEq/L (7-13); CHLORIDE,CL 104 mmol/L (98-107); SODIUM,NA 141 mmol/L (136-145)
[2021-12-18] MEDS ORDERED: Iopamidol 612 MG/ML 100 ML Bottle IVPUSH ONE (23:16)
[2021-12-18] MEDS ORDERED: Azithromycin 250 MG Tab PO ONE (23:31)
[2021-12-18] MEDS ORDERED: cefTRIAXone 1 GM in Sodium Chloride 0.9% 50 ML IV ONE (23:31)
[2021-12-19] MEDS ORDERED: LORazepam 2 MG/ML SDV IVPUSH ONE
[2021-12-20 11:47] LABS: C.TRACHOMATIS BY TMA Negative (Negative); N.GONORRHOEAE BY TMA Negative (Negative)
== END 2021-12-19 01:07 | disposition home or self-care (01) ==
LOC: DL.ED 20:17
DX: N12 Tubulo-interstitial nephritis, not specified as acute or chronic (principal); E03.9 Hypothyroidism, unspecified; Z88.1 Allergy status to other antibiotic agents
CPT/HCPCS: 36415; 74177; 80053; 80305; 81001; 83605; 84703; 85025; 87086; 87088; 87186; 87491; 87591; 96365; 96375; 99284; A9270; J0696; J2405; J3010; J7030; Q9967

== ENCOUNTER 2023-02-20 13:08 | Emergency (ER) | payer MEDICAID ==
[2023-02-20 13:30] VITALS: BP 111/65; PULSE 92
[2023-02-20] MEDS ORDERED: Sodium Chloride 0.9% 10 ML Syringe FLUSH PRN (13:36)
[2023-02-20] MEDS ORDERED: Ondansetron 4 MG/2 ML SDV IVPUSH ONE (13:47)
[2023-02-20] MEDS ORDERED: Sodium Chloride 0.9% 1,000 ML IV ONE (13:47)
[2023-02-20 14:35] LABS: ANION GAP 16.5 mEq/L (7-13); CHLORIDE,CL 101 mmol/L (98-107); SODIUM,NA 138 mmol/L (136-145)
[2023-02-20 14:42] LABS: ESTIMATED GFR 124 mL/min (>=60)
[2023-02-20 14:43] LABS: CORONAVIRUS COVID-19 NAA NEGATIVE (NEGATIVE)
== END 2023-02-20 14:58 | disposition home or self-care (01) ==
LOC: DL.ED 13:08
DX: K52.9 Noninfective gastroenteritis and colitis, unspecified (principal); R11.2 Nausea with vomiting, unspecified; Z72.0 Tobacco use; Z88.1 Allergy status to other antibiotic agents; Z86.16 Personal history of COVID-19; Z20.822 Contact with and (suspected) exposure to COVID-19
CPT/HCPCS: 0240U; 36415; 80053; 81025; 82150; 83605; 83690; 83735; 84145; 85025; 86140; 96361; 96374; 99283; 99284; J2405; J7030

== ENCOUNTER 2023-11-10 12:52 | Emergency (ER) | payer MEDICAID ==
[2023-11-10] MEDS ORDERED: Midazolam 1 MG/ML 2 ML SDV IV ONE (12:53)
[2023-11-10] MEDS ORDERED: fentaNYL 100 MCG/2 ML SDV IV ONE (12:53)
[2023-11-10] MEDS ORDERED: Ketamine 500 mg/10 ML MDV IV ONE (12:53)
[2023-11-10] MEDS ORDERED: Propofol 200 MG/20 ML SDV IV ONE (12:53)
[2023-11-10] MEDS ORDERED: Sodium Chloride 0.9% 1,000 ML IV ONE (14:13)
[2023-11-10 15:36] VITALS: BP 153/111; PULSE 75
== END 2023-11-10 16:07 | disposition home or self-care (01) ==
LOC: DL.ED 12:52
DX: S52.502A Unspecified fracture of the lower end of left radius, initial encounter for closed fracture (principal); S52.612A Displaced fracture of left ulna styloid process, initial encounter for closed fracture; F17.210 Nicotine dependence, cigarettes, uncomplicated; Z90.49 Acquired absence of other specified parts of digestive tract; Z79.899 Other long term (current) drug therapy; Z88.1 Allergy status to other antibiotic agents; W00.0XXA Fall on same level due to ice and snow, initial encounter
CPT/HCPCS: 25605; 73100-LT; 73110-LT; 99283; 99283-25; J7030

== ENCOUNTER 2024-06-02 06:53 | Emergency (ER) | payer MEDICAID ==
[2024-06-02 07:27] LABS: BASOPHILS PERCENT AUTO 0.3 % (0.0-1.0); EOSINOPHILS PERCENT AUTO 2.5 % (1.0-3.0); HEMATOCRIT 42.3 % (37.0-47.0); HEMOGLOBIN 14.2 g/dL (12.0-16.0); LYMPHOCYTES PERCENT AUTO 21.4 % (20.5-50.1); MEAN CORPUSCULAR HEMOGLOBIN 29.7 pg (27.0-34.0); MEAN CORPUSCULAR HGB CONC 33.6 g/dL (33.0-35.0); MEAN CORPUSCULAR VOLUME 88.5 fL (80-100); MONOCYTES PERCENT AUTO 5.6 % (2-8); NEUTROPHILS PERCENT AUTO 70.2 % (42.2-75.2); PLATELET COUNT,PLT 313 10^3/uL (150-450); RED BLOOD CELL COUNT 4.78 10^6/uL (4.2-5.4); WHITE BLOOD CELL COUNT,WBC 9.9 10^3/uL (5.0-10.0)
[2024-06-02 07:50] LABS: A/G RATIO 1.1; ALANINE AMINOTRANSFERASE,ALT 40 U/L (14-59); ALBUMIN 3.5 g/dL (3.4-5.0); ALKALINE PHOSPHATASE 64 U/L (46-116); AMYLASE 27 U/L (25-115); ANION GAP 13.8 mEq/L (7-13); ASPARTATE AMNIOTRANSFERASE,AST 24 U/L (15-37); BILIRUBIN TOTAL 0.6 mg/dL (0.2-1.0); BLOOD UREA NITROGEN,BUN 6 mg/dL (7-18); BUN/CREATININE RATIO 9.4 (No establ ref range); CALCIUM 9.4 mg/dL (8.5-10.1); CARBON DIOXIDE,CO2 28 mmol/L (21-32); CHLORIDE,CL 103 mmol/L (98-107); CREATININE 0.64 mg/dL (0.55-1.02); ESTIMATED GFR 123 mL/min (>=60); GLUCOSE RANDOM 113 mg/dL (70-99); LIPASE 23 U/L (16-77); MAGNESIUM 1.5 mg/dL (1.8-2.4); POTASSIUM,K 3.8 mmol/L (3.5-5.1); PROTEIN TOTAL,TP 6.7 g/dL (6.4-8.2); SODIUM,NA 141 mmol/L (136-145)
[2024-06-02 07:52] LABS: APPEARANCE,URINE CLEAR (CLEAR); BILIRUBIN,URINE NEGATIVE (NEGATIVE); COLOR,URINE YELLOW (YELLOW); GLUCOSE,URINE NEGATIVE (NEGATIVE); KETONES,URINE NEGATIVE (NEGATIVE); LEUKOCYTE ESTERASE,URINE TRACE (NEGATIVE); NITRITE,URINE NEGATIVE (NEGATIVE); OCCULT BLOOD,URINE NEGATIVE (NEGATIVE); PROTEIN,URINE 30 (NEGATIVE); UROBILINOGEN,URINE 0.2 mg/dL (0.2-1.0)
[2024-06-02] MEDS: Ondansetron 4 MG/2 ML SDV IVPUSH ONE ×2 (07:57→10:25)
[2024-06-02] MEDS ORDERED: Sodium Chloride 0.9% 10 ML Syringe FLUSH PRN (07:58)
[2024-06-02 08:02] LABS: BACTERIA,URINE FEW /HPF (0-FEW/HPF); EPITHELIAL CELLS,URINE MODERATE /HPF (NOT SEEN); MUCUS,URINE OCCASIONAL /LPF (NOT SEEN); RBC,URINE NOT SEEN /HPF (0-5)
[2024-06-02] MEDS: Magnesium Sulfate/Water 2 GM in Premix Bag 1 BAG IV ONE (08:02)
[2024-06-02] MEDS: Iopamidol 612 MG/ML 100 ML Bottle IVPUSH ONE (08:20)
[2024-06-02 09:36] VITALS: BP 133/109; PULSE 57
[2024-06-02] MEDS: Ketorolac 30 MG/ML SDV IVPUSH ONE (10:28)
== END 2024-06-02 11:02 | disposition home or self-care (01) ==
LOC: DL.ED 06:53
DX: K52.9 Noninfective gastroenteritis and colitis, unspecified (principal); E83.42 Hypomagnesemia; Z88.1 Allergy status to other antibiotic agents; Z79.899 Other long term (current) drug therapy; Z90.49 Acquired absence of other specified parts of digestive tract; Z79.1 Long term (current) use of non-steroidal anti-inflammatories (NSAID)
CPT/HCPCS: 36415; 74177; 80053; 81001; 81025; 82150; 83690; 83735; 84484; 85025; 93005; 93010; 96365; 96366; 96375; 96376; 99284; J1885; J2405; J3475; Q9967

== ENCOUNTER 2024-10-01 04:24 | Emergency (ER) | payer MEDICAID ==
[2024-10-01 04:46] LABS: APPEARANCE,URINE SLIGHTLY CLOUDY (CLEAR); BILIRUBIN,URINE NEGATIVE (NEGATIVE); COLOR,URINE YELLOW (YELLOW); GLUCOSE,URINE NEGATIVE (NEGATIVE); KETONES,URINE NEGATIVE (NEGATIVE); LEUKOCYTE ESTERASE,URINE NEGATIVE (NEGATIVE); NITRITE,URINE NEGATIVE (NEGATIVE); OCCULT BLOOD,URINE NEGATIVE (NEGATIVE); PROTEIN,URINE 100 (NEGATIVE); UROBILINOGEN,URINE 0.2 mg/dL (0.2-1.0)
[2024-10-01] MEDS: fentaNYL 100 MCG/2 ML SDV IVPUSH ONE (05:02)
[2024-10-01] MEDS: Ondansetron 4 MG/2 ML SDV IVPUSH ONE (05:02)
[2024-10-01 05:03] LABS: AMPHETAMINES,URINE NEGATIVE (NEGATIVE); BARBITURATES,URINE NEGATIVE (NEGATIVE); BENZODIAZEPINE,URINE NEGATIVE (NEGATIVE); MDMA (ECSTASY), URINE NEGATIVE (NEGATIVE); METHADONE,URINE NEGATIVE (NEGATIVE); METHAMPHETAMINES,URINE NEGATIVE (NEGATIVE); OPIATES,URINE NEGATIVE (NEGATIVE); OXYCODONE,URINE POSITIVE (NEGATIVE); PHENCYCLIDINE,URINE NEGATIVE (NEGATIVE); TCA,URINE NEGATIVE (NEGATIVE)
[2024-10-01] MEDS: Lactated Ringers 1,000 ML IV SCH (05:03)
[2024-10-01 05:09] LABS: BASOPHILS PERCENT AUTO 0.2 % (0.0-1.0); EOSINOPHILS PERCENT AUTO 1.2 % (1.0-3.0); HEMATOCRIT 47.5 % (37.0-47.0); HEMOGLOBIN 15.8 g/dL (12.0-16.0); LYMPHOCYTES PERCENT AUTO 18.5 % (20.5-50.1); MEAN CORPUSCULAR HEMOGLOBIN 29.3 pg (27.0-34.0); MEAN CORPUSCULAR HGB CONC 33.3 g/dL (33.0-35.0); MEAN CORPUSCULAR VOLUME 88.1 fL (80-100); MONOCYTES PERCENT AUTO 5.5 % (2-8); NEUTROPHILS PERCENT AUTO 74.6 % (42.2-75.2); PLATELET COUNT,PLT 409 10^3/uL (150-450); RED BLOOD CELL COUNT 5.39 10^6/uL (4.2-5.4); WHITE BLOOD CELL COUNT,WBC 16.8 10^3/uL (5.0-10.0)
[2024-10-01 05:18] LABS: EPITHELIAL CELLS,URINE MODERATE /HPF (NOT SEEN); RBC,URINE 0-5 /HPF (0-5); WBC,URINE 0-5 /HPF (0-5/HPF)
[2024-10-01 05:19] LABS: AMORPHOUS SEDIMENT,URINE MANY /HPF (NOT SEEN); BACTERIA,URINE MODERATE /HPF (0-FEW/HPF); FINE GRANULAR CASTS,URINE RARE /LPF (NOT SEEN); MUCUS,URINE FEW /LPF (NOT SEEN)
[2024-10-01 05:23] LABS: A/G RATIO 1.1; ALBUMIN 4.1 g/dL (3.4-5.0); ANION GAP 15.5 mEq/L (7-13); BILIRUBIN TOTAL 0.9 mg/dL (0.2-1.0); BUN/CREATININE RATIO 16.2 (No establ ref range); CALCIUM 9.3 mg/dL (8.5-10.1); CREATININE 0.74 mg/dL (0.55-1.02); EST CRCL DRUG DOSING (CG) 109.08 mL/min; MAGNESIUM 1.7 mg/dL (1.8-2.4); POTASSIUM,K 4.5 mmol/L (3.5-5.1); PROTEIN TOTAL,TP 7.8 g/dL (6.4-8.2)
[2024-10-01] MEDS: Iopamidol 612 MG/ML 100 ML Bottle IVPUSH ONE (05:38)
[2024-10-01] MEDS: Ketorolac 30 MG/ML SDV IVPUSH ONE (06:43)
[2024-10-01] MEDS: Morphine 2 MG/ML SYRINGE IVPUSH ONE (06:53)
[2024-10-01] MEDS: Piperacillin/Tazobactam 4.5 GM in Sodium Chloride 0.9% 100 ML IV ONE (07:16)
[2024-10-01 08:19] VITALS: BP 139/83; PULSE 80
== END 2024-10-01 08:10 ==
LOC: DL.ED 04:24
DX: K35.80 Unspecified acute appendicitis (principal); E83.42 Hypomagnesemia; F17.210 Nicotine dependence, cigarettes, uncomplicated; Z90.49 Acquired absence of other specified parts of digestive tract; Z79.1 Long term (current) use of non-steroidal anti-inflammatories (NSAID); Z79.899 Other long term (current) drug therapy; Z88.1 Allergy status to other antibiotic agents
CPT/HCPCS: 36415; 74177; 80053; 80305-QW; 81001; 81025; 83605; 83690; 83735; 85025; 86140; 96361; 96365; 96367; 96375; 99285-25; J1885; J2270; J2405; J2543; J3010; J3475; J3490; J7120; Q9967